=== PATIENT | male | born 2000 ===

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

== ENCOUNTER → 2022-01-05 | Outpatient (CLI) | payer OTHER ==
[~2022-01-05] MED LIST changes: +HYDR-3817 PO
--- NOTE | 2022-01-05 17:43 | Diagnostic Imaging Report ---
CHEST PA/LAT (2 VIEW) Indication: Tachycardia and chest pain Comparison: None available Findings: No pulmonary mass or consolidation. No pleural effusion or pneumothorax. Normal heart size and mediastinal contours. Impression: No acute cardiopulmonary process. Dictated by: Dictated on workstation # [id number]
[2022-01-05 19:25] LABS: HEMATOCRIT 47 % (40-54); HEMOGLOBIN 15.7 g/dL (13.3-17.7); MEAN CORPUSCULAR HEMOGLOBIN 27 pg (25-34); MEAN CORPUSCULAR HGB CONC 34 g/dL (32-36); MEAN CORPUSCULAR VOLUME 81 fL (80-99); MEAN PLATELET VOLUME 11.1 fL (9.0-12.2); PLATELET COUNT 214 10^3/uL (130-400)
[2022-01-05 19:59] LABS: ERYTHROCYTE SEDIMENTATION RATE 4 MM/HR (0-15)
[2022-01-05 20:03] LABS: POTASSIUM 3.9 MMOL/L (3.6-5.0); SODIUM 140 MMOL/L (135-145)
[2022-01-05 20:04] LABS: ALANINE AMINOTRANSFERASE 64 U/L (0-55); ALKALINE PHOSPHATASE 67 U/L (40-136); BILIRUBIN,TOTAL 0.5 MG/DL (0.1-1.0); BUN/CREATININE RATIO 13; CALCIUM 9.5 MG/DL (8.5-10.1); CARBON DIOXIDE 27 MMOL/L (21-32); CHLORIDE 105 MMOL/L (98-107); CREATININE SERUM 0.82 MG/DL (0.60-1.30); GFR ESTIMATED 130; GLUCOSE 95 MG/DL (70-105); MAGNESIUM 2.3 MG/DL (1.6-2.4)
[2022-01-05 20:05] LABS: ALBUMIN 4.5 GM/DL (3.2-4.5); TOTAL PROTEIN 7.5 GM/DL (6.4-8.2)
[2022-01-05 22:21] LABS: CREATINE KINASE MB 0.4 NG/ML (<6.6)
== END ==
LOC: RAD FS 17:14
PROVIDERS: ATTEND Nurse Practitioner Family
DX: R07.89 Other chest pain (principal); R06.02 Shortness of breath; R00.0 Tachycardia, unspecified; R53.83 Other fatigue; M79.10 Myalgia, unspecified site; U09.9 Post COVID-19 condition, unspecified
CPT/HCPCS: 36415; 71046; 80053; 82553; 83735; 84443; 84484; 85027; 85379; 85652; 86038; 86039; 86141; 86200; 86431

== ENCOUNTER → 2022-01-22 | Outpatient (CLI) | payer OTHER | LOC: CARDFS 09:46 | PROVIDERS: ATTEND Nurse Practitioner Family | DX: R07.9 Chest pain, unspecified (principal); R50.9 Fever, unspecified; R06.02 Shortness of breath; R53.82 Chronic fatigue, unspecified; R00.0 Tachycardia, unspecified | CPT/HCPCS: 93306 ==

== ENCOUNTER 2022-02-19 12:00 | Outpatient (RCR) | payer OTHER ==
[2022-02-19 12:17] VITALS: BP 144/72
--- NOTE | 2022-02-20 08:12 | Cardiology Stress Test Report ---
Stress Test Report Date of Procedure/Referring: Date of Procedure: Feb 19, 2022 PCP Aleksandr Goncalves Jr, MD Admitting Physician Andre Dunn DO Indications: Tachycardia Baseline Heart Rate: 103 Baseline Blood Pressure: Blood Pressure Systolic: 144 Blood Pressure Diastolic: 72 Baseline EKG: Baseline EKG: Sinus tachycardia at 103 bpm with nonspecific T wave changes. Summary/Conclusion: PROCEDURE: The patient was exercised for a total of 6 minutes of the standard Maxim protocol achieving a maximum MET level of 7.3. The resting heart rate was 103 bpm and the peak heart rate was 181 bpm, which represents 90% of the maximum predicted heart rate. The resting blood pressure was 144/72 mmHg and the peak blood pressure was 202/74 mmHg. This represents a normal heart rate and a hypertensive blood pressure response to exercise. The test was stopped due to the patient attaining the target heart rate. There was no exercise-induced chest discomfort, arrhythmias, or electrocardiogram changes during the test. The patient exhibited fair exercise capacity for age. IMPRESSION: 1. Normal heart rate and a hypertensive blood pressure response to exercise with resting sinus tachycardia. 2. There was no chest discomfort, arrhythmias, or electrocardiogram changes during the test. 3. The patient exhibited fair exercise capacity for age at 6 minutes of the Maxim protocol. 4. Other than the resting sinus tachycardia and the hypertensive blood pressure response to exercise, this is an unremarkable stress test representing overall low risk for possible future coronary ischemic events. Certain portions of this document may have been dictated utilizing voice anival gnition technology. Inherent to this technology, typographical and grammatical errors may exist. As much as I am diligent to identify and correct these mistakes, some errors may remain in the document. ALEKSANDR GONCALVES JR, MD Feb 20, 2022 08:12
== END 2022-03-07 | disposition home or self-care (01) ==
LOC: CARD 12:00
PROVIDERS: ATTEND Internal Medicine Cardiovascular Disease
DX: R00.0 Tachycardia, unspecified (principal)
CPT/HCPCS: 93017

== ENCOUNTER → 2023-03-26 | Outpatient (CLI) | payer BC ==
[2023-03-27 13:02] LABS: ABSOLUTE RETIC # 112 10e9/uL (24-90); BASOPHILS # (AUTO) 0.1 10^3/uL (0.0-0.1); BASOPHILS % (AUTO) 1 % (0-10); EOSINOPHILS # (AUTO) 0.3 10^3/uL (0.0-0.3); EOSINOPHILS % (AUTO) 3 % (0-10); HEMATOCRIT 46 % (40-54); HEMOGLOBIN 15.5 g/dL (13.3-17.7); LYMPHOCYTES # (AUTO) 3.8 10^3/uL (1.0-4.0); LYMPHOCYTES % (AUTO) 38 % (12-44); MEAN CORPUSCULAR HEMOGLOBIN 27 pg (25-34); MEAN CORPUSCULAR HGB CONC 34 g/dL (32-36); MEAN CORPUSCULAR VOLUME 81 fL (80-99); MONOCYTES # (AUTO) 0.5 10^3/uL (0.0-1.0); MONOCYTES % (AUTO) 5 % (0-12); NEUTROPHILS # (AUTO) 5.4 10^3/uL (1.8-7.8); NEUTROPHILS % (AUTO) 54 % (42-75); PLATELET COUNT 232 10^3/uL (130-400); RETICULOCYTE % 1.98 % (0.50-2.40)
[2023-03-27 13:04] LABS: BURR CELLS SLIGHT; EOSINOPHILS % (MANUAL) 3 %; LYMPHOCYTES % (MANUAL) 40 %; MONOCYTES % (MANUAL) 8 %; NEUTROPHILS % (MANUAL) 49 %; PLATELET ESTIMATE ADEQUATE
== END ==
LOC: LAB FS 15:17
PROVIDERS: ATTEND Emergency Medicine
DX: B60.00 Babesiosis, unspecified (principal); R51.9 Headache, unspecified; R50.9 Fever, unspecified; I89.0 Lymphedema, not elsewhere classified; R53.83 Other fatigue
CPT/HCPCS: 36415; 85007; 85027; 85045; 85055; 86617; 86666; 86668; 86753

== ENCOUNTER → 2023-04-09 | Outpatient (CLI) | payer BC | LOC: LAB FS 15:11 | PROVIDERS: ATTEND Emergency Medicine | DX: I88.9 Nonspecific lymphadenitis, unspecified (principal); A21.9 Tularemia, unspecified; R51.9 Headache, unspecified; R53.83 Other fatigue; R50.9 Fever, unspecified | CPT/HCPCS: 87040 ==

== ENCOUNTER 2023-04-13 11:34 | Emergency (ER) | payer BC ==
--- NOTE | 2023-04-13 11:51 | ED General ---
General Chief Complaint: Neurological Problems Stated Complaint: RT FACIAL NUMBNESS Source of Information: Patient, Family (mother) Exam Limitations: No Limitations History of Present Illness Date Seen by Provider: Apr 13, 2023 Time Seen by Provider: 11:37 Initial Comments 23-year-old male presents to the emergency department today for right facial tingling, right hand tingling. Symptoms are yesterday afternoon around 2 or 3:00 when he woke up from a nap. He denies any fevers or chills recently but he did test positive for 3 different tickborne illnesses recently. He does not recall a specific tick bite however he had a tick panel performed as he has felt generally unwell for about a year. He does have an autoimmune disease, spondylosis. He was seeing a formula mixer and getting infusions every 6 weeks however he had to stop this secondary to side effects from medications. All other systems reviewed and negative except documented per HPI. Voice recognition software was used to help create this chart Allergies and Home Medications Allergies Coded Allergies: neomycin (Unverified Adverse Reaction, Unknown, 05/14/21) Patient Home Medication List Home Medication List Reviewed: Yes Cetirizine HCl (Cetirizine HCl) 10 Mg Tablet, 10 MG PO DAILY PRN, (Reported) Entered as Reported by: JERRY PHAM on 08/05/21 0844 Ergocalciferol (Vitamin D2) (Vitamin D2) 50 Mcg Tablet, 50 MCG PO WEEK, (Reported) Entered as Reported by: JERRY PHAM on 08/05/21 0844 Hydrocodone/Acetaminophen (Hydrocodone-Acetamin 7.5-325) 1 Each Tablet, 1 EACH PO Q4H PRN for PAIN-BREAKTHROUGH Prescribed by: SARAH LARKIN on 08/07/21 0843 Review of Systems Review of Systems Constitutional: see HPI Past Ndqqgie-Cffbne-Thrwjh Hx Patient Social History Tobacco Use?: No Use of E-Cig and/or Vaping dev: No Substance use?: No Alcohol Use?: No Pt feels they are or have been: No Immunizations Up To Date Tetanus Booster (TDap): Unknown Influenza Vaccine Up-to-Date: No; Not Current First/Initial COVID19 Vaccinat: Denies Seasonal Allergies Seasonal Allergies: Yes Past Medical History Surgery/Hospitalization HX: Autoimmune disorder; Positive for Lymes disease recently Surgeries: Yes (PILIONIDAL CYST REMOVED 2018) Adenoidectomy, Tonsillectomy Respiratory: Yes (OUTGROWN) Cardiac: No Neurological: Yes (MIGRAINES) Headaches /Migraines Genitourinary: No Gastrointestinal: Yes Gastroesophageal Reflux Musculoskeletal: Yes Scoliosis Endocrine: No HEENT: Yes (WEARS GLASSES) Hearing Impairment: Denies Cancer: No Psychosocial: Yes (NERVOUS) Anxiety Integumentary: No Blood Disorders: No Adverse Reaction/Blood Tranf: No (N/A) Physical Exam Vital Signs Vital Signs - First Documented 04/13/23 11:37 Temp 36.8 Pulse 107 Resp 16 B/P (MAP) 122/92 (102) Pulse Ox 100 O2 Delivery Room Air Capillary Refill : Height, Weight, BMI Height: '" Weight: lbs. oz. kg; 27.53 BMI Method: General Appearance: No Apparent Distress, WD/WN Eyes: Bilateral Eye Normal Inspection, Bilateral Eye PERRL, Bilateral Eye EOMI HEENT: PERRL/EOMI, TMs Normal, Normal ENT Inspection, Pharynx Normal Neck: Full Range of Motion, Normal Inspection, Non Tender, Supple Respiratory: Chest Non Tender, Lungs Clear, Normal Breath Sounds, No Accessory Muscle Use, No Respiratory Distress Cardiovascular: Regular Rate, Rhythm, No Edema, No Gallop, No JVD, No Murmur, Normal Peripheral Pulses Gastrointestinal: Normal Bowel Sounds, No Organomegaly, No Pulsatile Mass, Non Tender, Soft Extremity: Normal Capillary Refill, Normal Inspection, Normal Range of Motion, Non Tender, No Calf Tenderness, No Pedal Edema Neurologic/Psychiatric: Alert, Oriented x3, No Motor/Sensory Deficits, Normal Mood/Affect, vamp wetter II-XII Norm as Tested Skin: Normal Color, Warm/Dry Lymphatic: No Adenopathy Progress/Results/Core Measures Suspected Sepsis SIRS Temperature: Pulse: Respiratory Rate: Laboratory Tests 04/13/23 11:53: White Blood Count 8.8 Blood Pressure / Mean: Laboratory Tests 04/13/23 11:53: Creatinine 0.88, Platelet Count 240, Total Bilirubin 0.4 Results/Orders Lab Results Laboratory Tests Test 04/13/23 11:53 Range/Units White Blood Count 8.8 4.3-11.0 10^3/uL Red Blood Count 6.08 H 4.30-5.52 10^6/uL Hemoglobin 16.5 13.3-17.7 g/dL Hematocrit 49 40-54 % Mean Corpuscular Volume 81 80-99 fL Mean Corpuscular Hemoglobin 27 25-34 pg Mean Corpuscular Hemoglobin Concent 34 32-36 g/dL Red Cell Distribution Width 12.6 10.0-14.5 % Platelet Count 240 130-400 10^3/uL Mean Platelet Volume 11.0 9.0-12.2 fL Immature Granulocyte % (Auto) 0 % Neutrophils (%) (Auto) 54 42-75 % Lymphocytes (%) (Auto) 37 12-44 % Monocytes (%) (Auto) 5 0-12 % Eosinophils (%) (Auto) 3 0-10 % Basophils (%) (Auto) 1 0-10 % Neutrophils # (Auto) 4.7 1.8-7.8 10^3/uL Lymphocytes # (Auto) 3.3 1.0-4.0 10^3/uL Monocytes # (Auto) 0.4 0.0-1.0 10^3/uL Eosinophils # (Auto) 0.3 0.0-0.3 10^3/uL Basophils # (Auto) 0.1 0.0-0.1 10^3/uL Immature Granulocyte # (Auto) 0.0 0.0-0.1 10^3/uL Sodium Level 141 135-145 MMOL/L Potassium Level 4.1 3.6-5.0 MMOL/L Chloride Level 106 98-107 MMOL/L Carbon Dioxide Level 26 21-32 MMOL/L Anion Gap 9 5-14 MMOL/L Blood Urea Nitrogen 9 7-18 MG/DL Creatinine 0.88 0.60-1.30 MG/DL Estimat Glomerular Filtration Rate 125 BUN/Creatinine Ratio 10 Glucose Level 104 70-105 MG/DL Calcium Level 9.8 8.5-10.1 MG/DL Corrected Calcium 8.5-10.1 MG/DL Magnesium Level 2.2 1.6-2.4 MG/DL Total Bilirubin 0.4 0.1-1.0 MG/DL Aspartate Amino Transf (AST/SGOT) 22 5-34 U/L Alanine Aminotransferase (ALT/SGPT) 44 0-55 U/L Alkaline Phosphatase 75 40-136 U/L Total Protein 7.6 6.4-8.2 GM/DL Albumin 4.6 H 3.2-4.5 GM/DL My Orders Orders - BECKIEHAKEEM DO Cbc With Automated Diff (04/13/23 11:48) Comprehensive Metabolic Panel (04/13/23 11:48) Magnesium (04/13/23 11:48) Ct Head Wo (04/13/23 11:48) Vital Signs/I&O 04/13/23 11:37 Temp 36.8 Pulse 107 Resp 16 B/P (MAP) 122/92 (102) Pulse Ox 100 O2 Delivery Room Air Capillary Refill : Departure Communication (Admissions) Patient is hemodynamically stable. He has no motor deficits whatsoever. He has subjective tingling to his right malar region that extends into his right ear and tingling in his right hand and arm. CT scan is negative. I have independently reviewed the images and I agree that there is no acute intracranial abnormality. Labs are unremarkable. No evidence for sodium or calcium abnormalities which could potentially cause similar symptoms. I think this is likely related to his chronic illness. Discharged in stable condition. Impression Primary Impression: Facial tingling Disposition: HOME, SELF-CARE Condition: Stable Departure-Patient Inst. Referrals: NAT BURRELL DO (PCP/Family) Primary Care Physician Patient Instructions: Paresthesia (DC) Add. Discharge Instructions: Your CT scan is negative and your labs are reassuring. This is likely related to your chronic illness at this time and I do not believe it is related to a stroke or other emergent medical concern. Continue to work with your primary doctor for further evaluation and treatment recommendations All discharge instructions reviewed with patient and/or family. Voiced understanding. HAKEEM BUTTS DO Apr 13, 2023 11:51
[2023-04-13 11:57] LABS: BASOPHILS # (AUTO) 0.1 10^3/uL (0.0-0.1); BASOPHILS % (AUTO) 1 % (0-10); EOSINOPHILS # (AUTO) 0.3 10^3/uL (0.0-0.3); EOSINOPHILS % (AUTO) 3 % (0-10); HEMATOCRIT 49 % (40-54); HEMOGLOBIN 16.5 g/dL (13.3-17.7); LYMPHOCYTES # (AUTO) 3.3 10^3/uL (1.0-4.0); LYMPHOCYTES % (AUTO) 37 % (12-44); MEAN CORPUSCULAR HEMOGLOBIN 27 pg (25-34); MEAN CORPUSCULAR HGB CONC 34 g/dL (32-36); MEAN CORPUSCULAR VOLUME 81 fL (80-99); MONOCYTES # (AUTO) 0.4 10^3/uL (0.0-1.0); MONOCYTES % (AUTO) 5 % (0-12); NEUTROPHILS # (AUTO) 4.7 10^3/uL (1.8-7.8); NEUTROPHILS % (AUTO) 54 % (42-75); PLATELET COUNT 240 10^3/uL (130-400); WHITE BLOOD COUNT 8.8 10^3/uL (4.3-11.0)
--- NOTE | 2023-04-13 12:10 | Diagnostic Imaging Report ---
PROCEDURE: CT head without contrast. TECHNIQUE: Multiple contiguous axial images were obtained through the brain without the use of intravenous contrast. Auto Exposure Controls were utilized during the CT exam to meet ALARA standards for radiation dose reduction. INDICATION: Left facial numbness There is no mass, shift of the midline or hemorrhage to suggest an acute intracranial abnormality. The ventricles are not abnormally dilated and stable in size when compared to the prior exam of 05/14/2021. The bone windows show no sign of a fracture or of a destructive lesion. The orbits are symmetrical and within normal limits. The left sphenoid sinus disease seen previously has resolved. The sinuses now seem generally clear. IMPRESSION: 1. There is no evidence for an acute intracranial abnormality. 2. If clinical concern regarding an underlying abnormality persists, then MRI would be recommended for further study. Dictated by: Dictated on workstation # [id number]
[2023-04-13 12:19] LABS: CHLORIDE 106 MMOL/L (98-107); POTASSIUM 4.1 MMOL/L (3.6-5.0); SODIUM 141 MMOL/L (135-145)
[2023-04-13 12:20] LABS: ALANINE AMINOTRANSFERASE 44 U/L (0-55); ALBUMIN 4.6 GM/DL (3.2-4.5); ALKALINE PHOSPHATASE 75 U/L (40-136); BILIRUBIN,TOTAL 0.4 MG/DL (0.1-1.0); BUN/CREATININE RATIO 10; CALCIUM 9.8 MG/DL (8.5-10.1); CARBON DIOXIDE 26 MMOL/L (21-32); CREATININE SERUM 0.88 MG/DL (0.60-1.30); GFR ESTIMATED 125; GLUCOSE 104 MG/DL (70-105); MAGNESIUM 2.2 MG/DL (1.6-2.4); TOTAL PROTEIN 7.6 GM/DL (6.4-8.2)
[2023-04-13 12:25] VITALS: BP 122/92
== END 2023-04-13 12:25 | disposition home or self-care (01) ==
LOC: EDUNIT# 11:34 → ER FS 11:35
DX: R20.2 Paresthesia of skin (principal); Z28.310 Unvaccinated for COVID-19
CPT/HCPCS: 36415; 70450; 80053; 83735; 85025